=== PATIENT | female | born 1970 | race Caucasian/White ===

== ENCOUNTER 2016-08-27 12:47 | Emergency (ER) | payer BC, OTHER ==
[2016-08-27 13:18] VITALS: BP 177/95
--- NOTE | 2016-08-27 14:19 | ERNOTE ---
Upper Extremity HPI - Narrative Date of Service: 08/27/16 - General Extremities Pain Location: shoulder: left Time Seen by Provider: 08/27/16 14:03 Source: patient, RN notes reviewed Exam Limitations: no limitations - Immun/Allergies/Home Medications Immunizations: IMMUNIZATION HX Immunizations Up to Date Yes History of Influenza Vaccine No Hx Pneumococcal Vaccination No Allergies/Adverse Reactions: Allergies Allergy/AdvReac Type Severity Reaction Status Date / Time No Known Allergies Allergy Verified 05/21/15 16:03 Home Medications: HOME MEDICATIONS Albuterol Sulfate [Proair Hfa] 2 puff IH TID PRN #1 inhaler 05/21/15 [Last Taken Unknown] Azithromycin [Zithromax] 500 mg PO DAILY #5 tab 05/21/15 [Last Taken Unknown] Promethazine HCl/Codeine [Phenergan W/Codeine Syrup] 5 ml PO Q4H PRN #180 ml 09/04 [Last Taken Unknown] predniSONE [Prednisone] 1 tab PO TID #15 tab 05/21/15 [Last Taken Unknown] HYDROcodone/ACETAMINOPHEN [Brandon 5-325] 1 - 2 tab PO Q6H PRN #20 tab 08/27/16 [ Last Taken Unknown] - History of Present Illness Narrative: Nicci is a 46 year old female who presents to the ED for a left shoulder injury that occurred at work on 08/25/16. She was pulling on a heavy object when she began having burning pain in the anterior aspect of her shoulder. She was seen by their occupational health provider. Xrays were done and she report that they were normal, but her pain has been worsening. Her ROM has also decreased over the past 2 days. She was to take ibuprofen for pain but states this is not helping. Date (Duration): 08/25/16 Location of Incident: work Modifying Factors - (Improves): Reports: immobilization, pain medication, rest Modifying Factors - (Worsens): Reports: movement Associated Symptoms: Reports: loss of power (lt arm). Denies: tingling, weakness, numbness distally Other Injuries: Reports: none Prior Treament: Reports: recently seen, treated by physician Review of Systems - Review of Systems Constitutional: Present: no symptoms reported EYE: Present: no symptoms reported ENT: Present: no symptoms reported Respiratory: Present: no symptoms reported Cardiology: Present: no symptoms reported Gastrointestinal/Abdominal: Present: no symptoms reported Genitourinary: Present: no symptoms reported Musculoskeletal: Present: joint pain. Absent: neck pain, joint swelling Skin: Absent: lesions, lumps, change in color Neurological: Present: weakness. Absent: numbness, tingling Endocrine: Present: no symptoms reported Hematologic/Lymphatic: Present: no symptoms reported Psych: Present: no symptoms reported - Patient's Past Medical History Patient History - Medical: No pertinent hx Patient History - Cardiac/Respiratory: No pertinent hx Patient History - Cancer: No Hx of Cancer Patient History - Surgical Procedures: Noncontributory - Social History Living Situations: spouse Smoking Status: Current every day smoker Cigarettes Packs Per Day: 0.8 Physical Exam - Physical Exam General Appearance: Present: wd/wn, alert, no apparent distress Neck: Present: normal inspection, nontender, supple, full range of motion Respiratory: Present: no respiratory distress, normal breath sounds, no accessory muscle use, lungs clear Cardiovascular/Chest: Present: regular rate, rhythm, no murmur, normal peripheral pulses Extremity Exam: Present: normal inspection, no edema, decreased range of motion - severely reduced ROM to left shoulder Neurological Exam: Present: alert, oriented, normal mood/affect, no motor/ sensory deficits Skin Exam: Present: normal color, warm/dry ED Progress - Vital Signs Patient's Vital Signs:: I have reviewed the patient's vital signs. Vital Signs: Vital Signs 08/27/16 13:09 Temperature 36.8 C Pulse Rate 91 Respiratory 18 Rate Blood Pressure 177/95 O2 Sat by Pulse 99 Oximetry - Progress/Reassessment Chief Complaint: Upper Extremity Injury/Problem Progress:: Unchanged Plan - Plan Plan: Rx given for Brandon, patient has f/u with her occupational health provider next week - instructed to contact them on Monday regarding having to be seen for pain medication. Patient already has work restrictions in place. Work excuse given for today. Departure Clinical Impression: Injury of left shoulder Qualifiers: Encounter type: subsequent encounter Qualified Code(s): S49.92XD - Unspecified injury of left shoulder and upper arm, subsequent encounter - Departure Disposition: Home Follow Up Needed Condition: Good Instructions: Shoulder Sprain, Form - Excuse from Work, School, or Physical Activity Additional Instructions: Continue ibuprofen Wear sling as needed Continue current work restrictions Contact your employee health person about worsening pain Referrals: Estefanía Garcia ARNP [Primary Care Provider] - Prescriptions: HYDROcodone/ACETAMINOPHEN [Brandon 5-325] 1 - 2 tab PO Q6H PRN #20 tab PRN Reason: Pain
== END 2016-08-27 14:27 | disposition home or self-care (01) ==
LOC: ER 12:47
DX: S49.92XA Unspecified injury of left shoulder and upper arm, initial encounter (principal); F17.210 Nicotine dependence, cigarettes, uncomplicated; X50.0XXA Overexertion from strenuous movement or load, initial encounter; Y93.89 Activity, other specified; Y92.89 Other specified places as the place of occurrence of the external cause; Y99.0 Civilian activity done for income or pay

== ENCOUNTER 2016-12-25 13:41 | Emergency (ER) | payer BC ==
--- NOTE | 2016-12-25 14:08 | ERNOTE ---
Medical Problem HPI - Narrative Date of Service: 12/25/16 - General Chief Complaint: General Assessment Time Seen by Provider: 12/25/16 13:50 Source: patient Exam Limitations: no limitations - Immun/Allergies/Home Medications Immunizations: IMMUNIZATION HX Immunizations Up to Date Yes History of Influenza Vaccine No Hx Pneumococcal Vaccination No Allergies/Adverse Reactions: Allergies No Known Allergies Allergy (Verified 12/25/16 13:48) Home Medications: HOME MEDICATIONS Albuterol Sulfate [Proair Hfa] 1 - 2 puff IH Q4H PRN #1 inhaler 12/25/16 [Last Taken Unknown] Levofloxacin [Levaquin] 750 mg PO DAILY #10 tab 12/25/16 [Last Taken Unknown] - History of Present History Narrative: patient states she started to feel bad on mon. States she is very tired and lethargic. fever on and off. highest at 101.6 last night. body aches. Date (Duration): 12/25/16 Timing: getting worse Severity: mild Modifying Factors - (Improves): Present: other - sleeping Modifying Factors - (Worsens): Present: movement Review of Systems - Review of Systems Constitutional: Present: fever, weakness - generalized, fatigue, malaise EYE: Present: eye pain - behind right eye ENT: Present: no symptoms reported Respiratory: Present: shortness of breath - feelslike shes not getting enough air. . Absent: cough, wheezing Cardiology: Present: no symptoms reported Gastrointestinal/Abdominal: Present: no symptoms reported Genitourinary: Present: no symptoms reported Musculoskeletal: Present: muscle stiffness. Absent: neck pain, joint pain, joint swelling Skin: Present: no symptoms reported Neurological: Present: headache. Absent: numbness, tingling, tremors Endocrine: Present: other - hot flashes- not new Hematologic/Lymphatic: Present: no symptoms reported Psych: Present: no symptoms reported - Patient's Past Medical History Patient History - Medical: No pertinent hx Patient History - Cardiac/Respiratory: No pertinent hx Patient History - Cancer: No Hx of Cancer Patient History - Surgical Procedures: Noncontributory Patient History - Other: None - Social History Living Situations: home Psych History: No pertinent hx Does anyone smoke in the home?: Yes Smoking Status: Current every day smoker Cigarettes Packs Per Day: 1 Have you smoked in the past 12 months: Yes Do you dip or chew tobacco: No Alcohol Use: none - Immunizations Immunizations Up to Date: Yes Hx Pneumococcal Vaccination: No History of Influenza Vaccine: No Physical Exam - Physical Exam General Appearance: Present: wd/wn, alert, no apparent distress Eye Exam: Normal inspection: bilateral Ears, Nose, Throat: Present: normal ENT inspection. Absent: nasal congestion, sinus pain/drainage Neck: Present: lymphadenopathy (R). Absent: thyromegaly Respiratory: Present: no respiratory distress, normal breath sounds, lungs clear Cardiovascular/Chest: Present: regular rate, rhythm, no murmur, normal peripheral pulses Gastrointestinal/Abdominal: Present: normal bowel sounds, nontender, soft Back Exam: Present: normal inspection, normal range of motion Extremity Exam: Present: normal inspection, normal range of motion, no edema Neurological Exam: Present: alert, oriented, normal mood/affect, no motor/ sensory deficits Skin Exam: Present: normal color, warm/dry Lymphatic Exam: Present: no adenopathy ED Progress - Results and Orders Patient's Lab Results:: I have reviewed the patient's lab results. Results and Orders: elevated D-dimer - Vital Signs Vital Signs: Vital Signs 12/25/16 13:45 Temperature 36.4 C L Pulse Rate 107 H Respiratory 12 Rate Blood Pressure 137/72 O2 Sat by Pulse 98 Oximetry - EKG EKG read: Reviewed by me EKG Comments: interp by Ed Attending - CT/Ultrasound CT/Ultrasound Narrative: Technique: Multiple thin axial images were obtained through the chest during the rapid infusion of intravenous contrast as per protocol. Coronal reconstructions were obtained. Findings: The thyroid gland is grossly normal. I do not see evidence for axillary adenopathy. There are small lymph nodes in the mediastinum and hilum without definable adenopathy. There are calcified subcarinal lymph nodes and calcified lymph nodes in the right hilum consistent with prior granulomatous disease. The thoracic aorta is mildly opacified and I do not see evidence for aneurysm or dissection. There is no definable coronary artery calcification. The heart is of normal size and I do not see evidence for significant pericardial effusion. The esophagus is grossly normal. The spleen and visualized liver appear homogeneous. The spleen is incompletely visualized on this study but does appear mildly prominent in size. The adrenal glands are within normal limits. There is reasonably good opacification of pulmonary arteries. I do not see evidence for definable filling defect to suggest pulmonary embolus. The lung serrano are clear. I do not see evidence for consolidation, effusion, or pneumothorax. There appears be mild thickening of the bronchi, which may reflect a bronchitis. There is a calcified granuloma in the right posterior costophrenic angle. IMPRESSION: 1. NO EVIDENCE FOR PULMONARY EMBOLUS 2. PRIOR CALCIFIED GRANULOMATOUS DISEASE WITH CALCIFIED LYMPH NODES IN THE SUBCARINAL AND RIGHT HILAR REGION AND A CALCIFIED GRANULOMA IN THE RIGHT LOWER LOBE. 3. QUESTIONABLE PROMINENCE OF THE SPLEEN; THIS CAN BE REEVALUATED WITH FOLLOW-UP OUTPATIENT CLINIC ULTRASOUND. 4. MILD PROMINENCE OF THE BRONCHI, WHICH MAY REFLECT AN ELEMENT OF BRONCHITIS. Electronically signed by Xiang Musa M.D.. - Progress/Reassessment Chief Complaint: General Assessment Progress:: Improved Departure - Departure Clinical Impression: Bronchitis Disposition: Home Follow Up Needed Condition: Stable Instructions: Acute Bronchitis Additional Instructions: Continue previous home meds as directed. [id number] pain and fever medication as needed. Return to the emergency room if she develops any shortness of breath. Return to the emergency room if the symptoms are same symptoms persist. Follow-up with her doctor the next 2-3 days related to this diagnosis. Referrals: Estefanía Garcia ARNP [Primary Care Provider] - Prescriptions: Albuterol Sulfate [Proair Hfa] 1 - 2 puff IH Q4H PRN #1 inhaler PRN Reason: Shortness Of Breath Levofloxacin [Levaquin] 750 mg PO DAILY #10 tab
--- OUTSIDE RECORDS SUMMARY | 2016-12-25 14:13 | XMS REPORT | Continuity of Care Document ---
:1970 Author Organization [facility] ([facility]) Address [address] [place] [address] Phone [phone] Care Team Providers Name Role Phone Unavailable Primary Care Provider Unavailable Source Comments This disclosure is being made pursuant to the Care Everywhere program, applicable federal and state laws, and may not contain all informaitonavailable regarding this patient.[facility] ([facility]) Active Allergies and Adverse Reactions Not on File Current Medications Not on file Active Problems Not on file Social History Tobacco Use Types Packs/Day Years Used Date Never Assessed Plan of Care Health Maintenance Due Date Last Done Comments Hepatitis B Vaccine (1 of 3 - Primary Series) 1970 Tdap Vaccine 1979 Lipid Disorder Screening 1986 MMR Vaccine 1986 Td Vaccine 1986 Cervical Cancer Screening 1998 Mammogram 2008 Influenza Vaccine: Seasonal (#1) 03/21/2016 Results from Last 3 Months Not on file
[2016-12-25 14:16] LABS: Hematocrit 36.9 % (37.0-47.0); Hemoglobin 12.9 gm/dL (12.5-16.0); Mean Cell Volume 91.6 fl (78-100); Mean Platelet Volume 9.3 fl (6.0-9.5); Neutrophil # 3.3 K/mm3 (1.3-6.0); Neutrophil % 75.9 % (42-75.0); Platelet Count 226 K/mm3 (150-450); Red Blood Count 4.03 M/mm3 (4.2-5.4); Red Cell Distribution Width 11.8 % (11.5-14.0); White Blood Count 4.3 K/mm3 (4.0-10.5)
[2016-12-25 14:39] LABS: Urine Bilirubin Negative (NEGATIVE); Urine Blood 50 /ul (NEGATIVE); Urine Ketone Negative (NEGATIVE); Urine Nitrite Negative (NEGATIVE); Urine Protein 100 mg/dL (NEGATIVE); Urine Specific Gravity 1.025 SP.GR. (1.005-1.010); Urine Urobilinogen Normal (NORMAL); Urine pH 5.5 pH (5.0-7.0)
[2016-12-25 14:41] LABS: ALT 27 U/L (19-67); AST 25 U/L (0-48); Albumin * 3.3 gm/dl (3.4-5.0); Alkaline Phosphatase * 120 U/L (50-170); Anion Gap 15.9 mmol/L (6.8-13.8); BUN/Creatinine Ratio 10.6 (9.0-21.6); Bilirubin, Total 0.7 mg/dL (0.0-1.1); Blood Urea Nitrogen 9 mg/dL (3-23); Ca. Corrected For Albumin 8.9 mg/dL (8.4-10.2); Calcium * 8.7 mg/dL (7.9-10.9); Chloride 100 mmol/L (97-106); Glucose * 107 mg/dL (70-110); Potassium 3.9 mmol/L (3.4-4.6); Sodium 138 mmol/L (132-142); Total Protein 8.3 gm/dL (6.2-8.2); Troponin I Less than 0.017 ng/ml (0.00-0.10)
[2016-12-25 14:51] LABS: Urine Appearance Slightly Cloudy; Urine Bacteria TRACE; Urine Color Yellow; Urine WBC 0-5 /hpf (0-5)
[2016-12-25 15:02] LABS: Cocaine Ur Negative (NEGATIVE); Urine Barbiturate Negative (NEGATIVE); Urine Benzodiazepines Negative (NEGATIVE); Urine Opiates Negative (NEGATIVE); Urine PCP Negative (NEGATIVE); Urine THC Negative (NEGATIVE)
[2016-12-25] MEDS ORDERED: NORMAL SALINE 1,000 ML IV ONE (15:02)
[2016-12-25 15:05] VITALS: BP 114/74
[2016-12-25 15:23] LABS: TSH * 0.685 uIU/mL (0.358-3.74)
== END 2016-12-25 17:03 | disposition home or self-care (01) ==
LOC: ER 13:41
DX: J20.9 Acute bronchitis, unspecified (principal); Z72.0 Tobacco use